=== PATIENT | female | born 1985 | race Caucasian/White ===

== ENCOUNTER → 2016-10-03 | Outpatient (REF) ==
--- NOTE | 2016-10-03 12:56 | DI ---
Exam: Two x-rays of the chest. Comparison: 10/04/2014. Reason for exam: Screening FINDINGS: No pneumothorax, pleural effusion, or focal consolidation. The cardiac silhouette is not enlarged. The imaged osseous structures are unremarkable without acute fracture. Impression: No acute cardiopulmonary process.
== END ==
LOC: RAD 11:14
DX: Z02.89 Encounter for other administrative examinations (principal)